=== PATIENT | male | born 1970 | race Asian ===

== ENCOUNTER 2022-09-13 12:14 | Outpatient (CLI) | payer BC | END 2022-09-13 12:15 | disposition home or self-care (01) | LOC: SCSRAD 12:14 | PROVIDERS: ATTEND Chiropractor | DX: M46.07 Spinal enthesopathy, lumbosacral region (principal); M47.817 Spondylosis without myelopathy or radiculopathy, lumbosacral region | CPT/HCPCS: 72100 ==